=== PATIENT | female | born 1970 | race Caucasian/White ===

== ENCOUNTER 2017-05-14 12:47 | Day surgery (SDC) | payer BC ==
[~2017-05-14 12:47] MED LIST: Buffered Lidocaine 0.9% SYRIN* 5 ML/SYR SYRINGE INTRADERM ONE; Buffered Lidocaine 0.9% SYRIN* 5 ML/SYR SYRINGE ONE; Dexamethasone IV* 4 MG/ML 1 ML (4 MG) IV SLOW PU ONE; Dexamethasone IV* 4 MG/ML 1 ML (4 MG) ONE; Famotidine IV* 10 MG/ML 2 ML (20 mg) IV ONE; Famotidine IV* 10 MG/ML 2 ML (20 mg) ONE; ceFAZolin 2 GM PREMIX (*) 2 GM/50 ML BAG IVPB ONE
[2017-05-14] MEDS ORDERED: Dexamethasone IV* 4 MG/ML 1 ML (4 MG) ONE (13:31)
[2017-05-14] MEDS ORDERED: fentaNYL* 50 MCG/ML 2 ML VIAL (100 MCG VIAL) IV PRN (13:32)
[2017-05-14] MEDS ORDERED: Lidocaine 1% INJ* 10 MG/ML 30 ML SDV ONE (13:32)
[2017-05-14] MEDS ORDERED: oxyCODONE/Acetamin 5/325 MG* TAB PO PRN (13:32)
[2017-05-14] MEDS ORDERED: Ondansetron INJ* 2 MG/ML VIAL IV PRN (13:32)
[2017-05-14] MEDS ORDERED: DiMENhydriNATE IV* 50 MG/ML VIAL IV PUSH PRN (13:32)
[2017-05-14] MEDS ORDERED: Bupivacaine 0.25% SDV* 30 ML ONE (13:32)
[2017-05-14] MEDS ORDERED: Propofol* 10 MG/ML 20 ML BTL IV PUSH ONE (13:38)
[2017-05-14] MEDS ORDERED: Midazolam* 1 MG/ML 5 ML VIAL (5 MG) ONE (13:38)
[2017-05-14] MEDS ORDERED: fentaNYL* 50 MCG/ML 2 ML VIAL (100 MCG VIAL) ONE (13:38)
[2017-05-14] MEDS ORDERED: Ketorolac INJ* 30 MG/ML 1 ML VIAL ONE (13:38)
[2017-05-14] MEDS ORDERED: Ondansetron INJ* 2 MG/ML VIAL ONE (13:38)
[2017-05-14 15:11] VITALS: BP 132/87
--- NOTE | 2017-05-15 04:48 | OP ---
DATE OF OPERATION: 05/14/17 - [facility] DATE OF : 68 SURGEON: Waylon Siddiqi DPM ANESTHESIOLOGIST: Dr. Ospina. ANESTHESIA: MAC local. PRE-OP DIAGNOSIS: Left foot plantar fibromatosis. POST-OP DIAGNOSIS: Left foot plantar fibromatosis. OPERATIVE PROCEDURE: Left foot release of plantar fibromatosis. ESTIMATED BLOOD LOSS: Less than 10 cc. IV FLUIDS: LR 1000 cc. DRAINS: None. SPECIMENS: None. DESCRIPTION OF PROCEDURE: The patient was placed taken to the operating room and was placed in the supine position. Time-out was called and OR team agreed. The left foot was then blocked with 5 cc of 1% lidocaine plain at the plantar aspect of the left heel at the plantar medial calcaneal tubercle area. The foot was then prepped and draped in sterile manner. The left foot was exsanguinated with an Esmarch bandage and the cuff was then inflated to 250 mmHg. Attention was then paid to the plantar aspect of the left foot. I palpated the medial band of the plantar fascia, I followed it down to its insertion to the plantar medial calcaneal tubercle where I made a linear incision just anterior to the plantar tubercle on the nonweightbearing portion of the heel. I made an approximately a 1 to 0.5 inch incision just followed by sharp and blunt dissection from epidermis, dermis, subcutaneous tissue and down to the deep fascia. Once the medial band of the plantar fascia was identified, I then took a #15 blade and transected the medial band of the plantar fascia and performed a release. Remaining fibers were completed by using a Metzenbaum to cut it. Once I determined that all the fibers were transected at the level of the medial band of the plantar fascia, the procedure was then deemed completed. All bleeders were controlled via Bovie and irrigated the site. The wound was then closed with 4-0 nylon and the site was injected with 5 cc of 0.25 % Marcaine plain and 8 mg of dexamethasone phosphate. This completed the procedure. The cuff was then deflated, placed in dry sterile dressing. The patient was taken to Recovery in stable condition and was later discharged in stable condition as well. [id number]/[facility] #: [id number] MTDD
== END 2017-05-14 15:32 | disposition home or self-care (01) ==
LOC: OR 12:47
PROVIDERS: ATTEND Podiatrist
DX: M72.2 Plantar fascial fibromatosis (principal); I47.1 Supraventricular tachycardia
CPT/HCPCS: 81025; J0690; J1100; J1885; J2001; J2250; J2405; J2704; J3010

== ENCOUNTER → 2019-07-07 10:24 | Day surgery (SDC) | payer BC ==
[~2019-07-07 10:24] MED LIST changes: -Buffered Lidocaine 0.9% SYRIN* 5 ML/SYR SYRINGE INTRADERM ONE; -Buffered Lidocaine 0.9% SYRIN* 5 ML/SYR SYRINGE ONE; +Buffered Lidocaine 1% SYRIN* 1 ML/SYRINGE INTRADERM ONE; +Bupivacaine 0.25% SDV PF* 10 ML VIAL INJ ONE; -Dexamethasone IV* 4 MG/ML 1 ML (4 MG) IV SLOW PU ONE; +DiMENhydriNATE IV* 50 MG/ML VIAL IV PUSH PRN; -Famotidine IV* 10 MG/ML 2 ML (20 mg) IV ONE; -Famotidine IV* 10 MG/ML 2 ML (20 mg) ONE; +Ketorolac INJ* 30 MG/ML 1 ML VIAL ONE; +Lactated Ringers 1000 ML Bag* 1,000 ML IV SCH; +Lidocaine 1% INJ* 10 MG/ML 30 ML SDV ONE; +Midazolam* 1 MG/ML 5 ML VIAL (5 MG) ONE; +Naloxone* 0.4 MG/ML 1 ML VIAL IV PRN; +Ondansetron INJ* 2 MG/ML VIAL IV PRN; +Propofol* 10 MG/ML 20 ML BTL ONE; -ceFAZolin 2 GM PREMIX (*) 2 GM/50 ML BAG IVPB ONE; +ceFAZolin 2 GM PREMIX in ORs 2 GM/50 ML BAG ONE; +fentaNYL* 50 MCG/ML 2 ML VIAL (100 MCG VIAL) IV PRN; +fentaNYL* 50 MCG/ML 2 ML VIAL (100 MCG VIAL) ONE; +oxyCODONE/Acetamin 5/325 MG* TAB PO PRN
[2019-07-07 15:04] VITALS: BP 136/57
--- NOTE | 2019-07-08 00:13 | OP ---
DATE OF OPERATION: 07/07/19 - [facility] DATE OF : 68 SURGEON: Waylon Siddiqi DPM ANESTHESIA: MAC local. PRE-OP DIAGNOSIS: Right plantar fibromatosis. POST-OP DIAGNOSIS: Right plantar fibromatosis. OPERATIVE PROCEDURE: Release of plantar fibromatosis, right foot. ESTIMATED BLOOD LOSS: Less than 10 cc. IV FLUIDS: LR 1000 cc. DRAINS: None. SPECIMENS: None. DESCRIPTION OF PROCEDURE: The patient was taken to the operating room and was placed in the supine position. Time-out was called and OR team agreed. The right foot was then blocked with 10 cc of 1% lidocaine plain, directly to the incision site as well as with a posterior tibial nerve block. The foot was then prepped and draped in a sterile manner. The right foot was exsanguinated with an Esmarch bandage and the cuff was then inflated to 250 mmHg. Attention was then paid to the plantar aspect of the right heel. I followed the medial band of the plantar fascia down to its attachment to the plantar medial pedicle of the right heel. I made an incision right over the site, this was followed by sharp and blunt dissection starting from the epidermis, dermis, subcutaneous tissue, and down to fascia. Once I was able to identify the medial band of the plantar fascia, I went ahead and transected with a #15 blade. Once I got down to the muscle belly, the procedure was then deemed completed. I examined the rest of the area and no other relating fibers left to be transected. The wound was then irrigated and closed in a layered anatomical fashion. I went ahead and injected the site with 3 cc of 0.25% Marcaine plain as well as 1 cc or 4 mg of dexamethasone phosphate. The cuff was then deflated. The foot was placed in a dry sterile dressing. There was good capillary refill in all five toes. The patient was taken to Recovery in stable condition and was discharged in stable condition as well. [id number]/[facility] #: [id number] KATYA
== END | disposition home or self-care (01) ==
LOC: OR 10:24
PROVIDERS: ATTEND Podiatrist
DX: M72.2 Plantar fascial fibromatosis (principal)
CPT/HCPCS: 81025; J0690; J1100; J1885; J2250; J2704; J3010; J3490